=== PATIENT | male | born 1970 | race Caucasian/White ===

== ENCOUNTER 2017-04-13 11:30 | Inpatient (IN) | payer OTHER ==
[~2017-04-13] VITALS: Ht 182.9 cm; Wt 118.8 kg
[2017-04-13] MEDS ORDERED: AVALIDE 300-121 EACH PO (15:37)
[2017-04-13] MEDS ORDERED: CLONAZEPAM0.5 M1 PO (15:38)
[2017-04-13] MEDS ORDERED: GABAPENTIN300 MG PO (15:39)
[2017-04-13] MEDS ORDERED: PROSAC PO (15:39)
[2017-04-13] MEDS ORDERED: TRAMADOL HCL50 MG PO (15:39)
[2017-04-13] MEDS ORDERED: IPRATROPIU0.2 MG/1 M (15:40)
[2017-04-13] MEDS ORDERED: PROVENTIL HFA6.7 GM (15:40)
[2017-04-13] MEDS ORDERED: [UNRECOGNIZED DRUG - OTHER] (15:41)
[2017-04-20] MEDS ORDERED: GABAPENTIN800 MG PO (14:40)
[2017-04-20] MEDS ORDERED: AMOX1TAB12 PO (14:40)
[2017-04-20] MEDS ORDERED: PERCOCET 5-3251 EACH PO (14:40)
[2017-04-20] MEDS ORDERED: CLONAZEPAM1 MG PO (14:40)
[2017-04-20] MEDS ORDERED: DOCUSATE SODIU100 MG PO (14:40)
== END 2017-04-20 16:00 | disposition home or self-care (01) | DRG 455 ==
LOC: SURH 04-19 05:30 → O/R 04-19 05:30 → SURH 04-19 11:30 → O/R 04-19 15:22 → SURG 04-19 15:22 → SURH 04-19 15:30
PROVIDERS: Orthopaedic Surgery Orthopaedic Surgery of the Spine
PROC: 0SG30AJ Fusion of Lumbosacral Joint with Interbody Fusion Device, Posterior Approach, Anterior Column, Open Approach (ICD-10-PCS; 2017-04-19)
PROC: 0SG0071 Fusion of Lumbar Vertebral Joint with Autologous Tissue Substitute, Posterior Approach, Posterior Column, Open Approach (ICD-10-PCS; 2017-04-19)
PROC: 0ST40ZZ Resection of Lumbosacral Disc, Open Approach (ICD-10-PCS; 2017-04-19)
PROC: 07DS3ZZ Extraction of Vertebral Bone Marrow, Percutaneous Approach (ICD-10-PCS; 2017-04-19)
PROC: 00NY0ZZ Release Lumbar Spinal Cord, Open Approach (ICD-10-PCS; principal; 2017-04-19 17:30)
DX: M96.1 Postlaminectomy syndrome, not elsewhere classified (principal); M51.37 Other intervertebral disc degeneration, lumbosacral region; I10 Essential (primary) hypertension